=== PATIENT | female | born 1960 | race Two or more races ===

== ENCOUNTER 2017-02-24 06:04 | Day surgery (SDC) | payer BC, OTHER ==
[2017-02-17 10:12] VITALS: BMI 27.8
[2017-02-24] MEDS ORDERED: MIDAZOLAM HCL 2 MG/2 ML SINGLE DOSE VIAL ONE ×2 (06:49→07:43)
[2017-02-24] MEDS ORDERED: DEXAMETHASONE SOD PHOSPHATE/PF 10 MG/ML SDV ONE (06:49)
[2017-02-24] MEDS ORDERED: BUPIVACAINE HCL/PF (5 MG/ML) 30 ML VIAL IJ ONE (06:49)
[2017-02-24] MEDS ORDERED: EPINEPHrine 1:1,000 1 MG/1 ML - 30ML VIAL (INJECTION) ONE (07:41)
[2017-02-24] MEDS ORDERED: ceFAZolin SODIUM 1 GM VIAL ONE (07:42)
[2017-02-24] MEDS ORDERED: LIDOCAINE HCL/PF 2% SDV 5ML VIAL ONE (07:43)
[2017-02-24] MEDS ORDERED: PROPOFOL 20 ML ONE ×2 (07:43)
[2017-02-24] MEDS ORDERED: SUCCINYLCHOLINE CHLORIDE 200 MG/10 ML VIAL ONE (07:43)
[2017-02-24] MEDS ORDERED: KETOROLAC TROMETHAMINE 30 MG/1 ML VIAL ONE (07:43)
[2017-02-24] MEDS ORDERED: ONDANSETRON 4 MG/2 ML VIAL ONE (07:43)
[2017-02-24] MEDS ORDERED: DEXAMETHASONE SOD PHOSPHATE 4 MG/1 ML VIAL ONE (07:43)
[2017-02-24] MEDS ORDERED: LIDOCAINE HCL 2% JELLY (5 ML/TUBE) ONE (07:43)
--- NOTE | 2017-02-24 07:44 | OP ---
Operative Note - Note: Operative Date: 02/24/17 Pre-Operative Diagnosis: r sh tear Operation: scope r sh Findings: tear Post-Operative Diagnosis: Same as Pre-op Surgeon: Eric Anderson V Anesthesia: Fractional Estimated Blood Loss (mls): 10 Operative Report Dictated: Yes
[2017-02-24] MEDS ORDERED: ePHEDrine SULFATE 50 MG/1 ML AMPULE ONE (08:16)
[2017-02-24] MEDS ORDERED: CEFAZOLIN (PRE-DOCKED) 1 GM in DEXTROSE 5%-WATER - 50 ML IVPB ONE (11:00)
[2017-02-24] MEDS ORDERED: ONDANSETRON 4 MG/2 ML VIAL IVPUSH PRN (11:04)
[2017-02-24] MEDS ORDERED: oxyCODONE HCL 5 MG TABLET PO PRN (11:04)
[2017-02-24] MEDS ORDERED: LACTATED RINGERS SOLUTION 1,000 ML IV SCH (11:15)
[2017-02-24 11:19] VITALS: TEMP 97.4
[2017-02-24 13:45] VITALS: BP 118/62; PULSE 64
--- NOTE | 2017-02-24 13:51 | OP ---
DATE OF OPERATION: 02/24/2017 PREOPERATIVE DIAGNOSIS: Right shoulder internal derangement. POSTOPERATIVE DIAGNOSES: Right shoulder rotator cuff tear, biceps tear, labral tear, impingement, acromioclavicular arthrosis. PROCEDURE PERFORMED: Cuff repair, biceps tenodesis, labrectomy, arthroscopic subacromial decompression, acromioclavicular arthroplasty. SURGEON: Eric Gibson MD WINDOW GLAZIER: MARLENE Bhatti ANESTHESIA: Irvin Mix CRNA, general with block, LMA. ANTIBIOTIC: Kefzol 1 g. COMPLICATIONS: None. WOUND TYPE: Clean. SPECIMENS: Shavings. INDICATIONS: The patient sustained an injury to the shoulder and has had extreme pain since that time. She also has some radiculopathic pain. The risks and benefits have been explained and understood. She is here for arthroscopic evaluation and treatment. The MRI is positive. DESCRIPTION OF PROCEDURE: Patient brought to the operating room, placed on the table in the beach chair position. All prominences were padded. Care was taken with the neck. Sterile prep and drape were performed. Bony landmarks were marked on the skin surface. EUA was remarkable for moderate anterior instability which was greater than the other side. Labrectomy: Getting into the shoulder joint using a blunt trocar for the posterior approach, the following findings were noted. 1. There was a drive-through sign. 2. There was effacement of the entire glenoid labrum. 3. The biceps was ratty and torn. 4. There was a large rotator cuff tear in the supraspinatus and infraspinatus tendon. 5. The subscapularis was intact to its insertion. 6. There were no loose bodies in the pouch. 7. There was a large posterior superior labral tear, most likely symptomatic and interposing. The torn labrum here was resected using hand and motorized instruments and normalized. Biceps Tenodesis: The biceps was now pinned. We went externally, created an 8- mm socket, opened the groove entirely, placed the biceps within the socket, and tenodesed it here securely using an 8-mm biceps Bio-Tenodesis fork device by [employer]. Arthroscopic Subacromial Compression: In the subacromial space, we took down the CA ligament and did a biplaning acromioplasty for a significant anteromedial hook. We also mobilized the cuff tear which was visible here. Acromioclavicular Arthroplasty: We now resected the entire distal aspect of the clavicle. The outer 11 mm were taken. Care was taken to avoid the conoid and trapezoid ligaments. Rotator Cuff Repair: We now trimmed back the rotator cuff edges to good tissue. This left us with a tear of about 2.5 cm in maximum dimension involving the entire supraspinatus and a bit of the infraspinatus as well. We prepared the juxta-articular surface of the greater tuberosity down to punctate bleeding bone for healing and then we placed our medial row anchor, which was a 5.5 Regenerex by [employer]. We passed an anterior horizontal mattress and 2 posterior simples in about an 85-degree arc. We tied these down securely and then did a double second row using two 4.5 Bio-PushLocks. We were pleased with cuff contact pressures and stability, which were good. We did the exam again. She had full passive range but significantly better anterior stability. Conclusion: We closed the portals with Monocryl. Dressing was applied. She returned to recovery. She will be discharged to home with shoulder sheath. I am giving her Percocet for pain. I will see her in the office in followup in 1 week. ERIC GIBSON M.D. [id number] MTDD
--- NOTE | 2017-02-27 15:18 | SURG ---
Surgery Educational Fundraising Director Note Educational Fundraising Director: Kellie Leon PA-C Date of Service: 02/24/17 Diagnosis: Pre-op: Right shoulder derangement POst-op: Right shoulder rotator cuff tear, biceps tear, labral tear, impingement , acromioclavicular arthrosis Procedure: Cuff repair, biceps tenodesis, labrectomy, athroscopic subacromial decompression , acromioclavicular arthroplasty I was present for the entirety of the operative procedure. For further detail, please refer to operative report. Visit type - Case Type Case Type: Scheduled Admission
== END 2017-02-24 13:25 | disposition home or self-care (01) ==
LOC: FASU 06:04
PROVIDERS: ATTEND Orthopaedic Surgery
PROC: 0RNJ4ZZ Release Right Shoulder Joint, Percutaneous Endoscopic Approach (ICD-10-PCS; 2017-02-24)
PROC: 0LS14ZZ Reposition Right Shoulder Tendon, Percutaneous Endoscopic Approach (ICD-10-PCS; 2017-02-24)
PROC: 0PB94ZZ Excision of Right Clavicle, Percutaneous Endoscopic Approach (ICD-10-PCS; 2017-02-24)
PROC: 0RQJ4ZZ Repair Right Shoulder Joint, Percutaneous Endoscopic Approach (ICD-10-PCS; 2017-02-24)
PROC: 0LB14ZZ Excision of Right Shoulder Tendon, Percutaneous Endoscopic Approach (ICD-10-PCS; principal; 2017-02-24 08:37)
DX: M75.101 Unspecified rotator cuff tear or rupture of right shoulder, not specified as traumatic (principal); M66.821 Spontaneous rupture of other tendons, right upper arm; M24.111 Other articular cartilage disorders, right shoulder; M75.41 Impingement syndrome of right shoulder; M19.011 Primary osteoarthritis, right shoulder
CPT/HCPCS: 94760